=== PATIENT | male | born 1980 | race Caucasian/White ===

== ENCOUNTER 2022-11-21 07:36 | Emergency (ER) | payer MEDICAID ==
[~2022-11-21] VITALS: Ht 152.4 cm; Wt 77.1 kg
[2022-11-21 07:46] VITALS: BP 129/75
--- NOTE | 2022-11-21 07:57 | NUR ---
Patient ambulated to bed 5.
--- NOTE | 2022-11-21 08:05 | NUR ---
Dr. Beth evaluating patient at bedside.
--- NOTE | 2022-11-21 08:06 | NUR ---
42 y/o male bib self with c/o generalized abdominal pain x 5 days. Denies taking any medication for symptoms. Denies any nausea, vomiting or diarrhea. Last Bowel Movement 11/21/22. Denies any new foods or sick contacts at home. Patient denies any fevers or chills. Medical History: Denies NKDA
[2022-11-21] MEDS ORDERED: KETOROLAC 15 MG/ML VIAL IVP ONE (08:10)
[2022-11-21 08:20] LABS: APPEARANCE,URINE CLEAR (CLEAR); BILIRUBIN,URINE NEGATIVE (NEGATIVE); BLOOD, URINE NEGATIVE (NEGATIVE); COLOR,URINE YELLOW (YELLOW); LEUKOCYTE ESTERASE ,URINE NEGATIVE (NEGATIVE); NITRITE, URINE NEGATIVE (NEGATIVE); PH,URINE 6.5 (5.0-9.0); UGLUCOSE NEGATIVE (NEGATIVE)
[2022-11-21 08:43] LABS: BASOPHILS # (AUTO) 0.1 K/uL (0.00-0.22); BASOPHILS % (AUTO) 0.8 % (0.0-2.0); EOSINOPHILS # (AUTO) 0.1 K/uL (0-0.4); EOSINOPHILS % (AUTO) 1.9 % (0.0-4.0); HEMATOCRIT 45.7 % (36-52); LYMPHOCYTES # (AUTO) 1.7 K/uL (2.0-11.5); LYMPHOCYTES % (AUTO) 22.9 % (20.5-51.1); MEAN CORPUSCULAR HEMOGLOBIN 31 pg (27-31); MEAN CORPUSCULAR HGB CONC 35 g/dL (33-37); MEAN CORPUSCULAR VOLUME 89.2 fL (80-94); MONOCYTES # (AUTO) 0.6 K/uL (0.8-1.0); MONOCYTES % (AUTO) 8.6 % (1.7-9.3); NEUTROPHILS # (AUTO) 4.9 K/uL (1.8-7.7); NEUTROPHILS % (AUTO) 65.8 % (42.2-75.2); PLATELET COUNT (AUTO) 279 K/uL (140-450); RED BLOOD CELL COUNT(AUTO) 5.13 MIL/uL (4.20-6.10); RED CELL DISTRIBUTION WIDTH 13.4 % (11.6-13.7); WHITE BLOOD COUNT (AUTO) 7.5 K/uL (4.8-10.8)
[2022-11-21 09:06] LABS: ALBUMIN 3.9 g/dL (3.4-5.0); ANION GAP 11.8 (8-16); CARBON DIOXIDE 26.9 mmol/L (21-32); POTASSIUM 3.7 mmol/L (3.5-5.1); TOTAL BILIRUBIN 0.3 mg/dL (0.0-1.0)
--- NOTE | 2022-11-21 09:15 | NUR ---
Patient is being taken to CT via gurney.
--- NOTE | 2022-11-21 09:34 | NUR ---
Patient returned from CT.
--- NOTE | 2022-11-21 10:31 | NUR ---
Patient being re-evaluated by Dr. Beth at bedside.
[2022-11-21] MEDS ORDERED: IBUP-2213 PO (10:46)
[2022-11-21] MEDS ORDERED: ACET-2619 PO (10:46)
[2022-11-21 10:58] VITALS: BP 130/75
--- NOTE | 2022-11-21 10:58 | NUR ---
Patient discharged with v/s stable. Written and verbal after care instructions given. Patient alert, oriented and verbalized understanding of instructions. Ambulatory with steady gait. All questions addressed prior to discharge. ID band removed. Patient advised to follow up with PMD. Rx of Tylenol and Ibuprofen given. Opportunity to ask questions provided and answered. COPY OF LAB WORK GIVEN TO PATIENT.
--- NOTE | 2022-11-21 11:00 | NUR ---
The patient's care was reviewed and supervised by Nereida Page, RN, RN.
== END 2022-11-21 10:58 | disposition home or self-care (01) ==
LOC: MED 07:36
DX: K76.0 Fatty (change of) liver, not elsewhere classified (principal); R94.5 Abnormal results of liver function studies; R10.31 Right lower quadrant pain; R10.32 Left lower quadrant pain; Z79.899 Other long term (current) drug therapy; Z79.1 Long term (current) use of non-steroidal anti-inflammatories (NSAID)
CPT/HCPCS: 36415; 74177; 80053; 81003; 83690; 85025; 96374; 99284; J1885; Q9967